=== PATIENT | female | born 1990 | race African-American/Black ===

== ENCOUNTER 2021-03-21 12:08 | Day surgery (SDC) | payer OTHER | END 2021-03-21 13:51 | disposition home or self-care (01) | LOC: CSHSDC 12:08 | PROVIDERS: ATTEND Family Medicine | DX: Z23 Encounter for immunization (principal); U07.1 COVID-19; I10 Essential (primary) hypertension | CPT/HCPCS: 96365; J3490; M0243; Q0244 ==

== ENCOUNTER 2021-05-13 03:02 | Inpatient (IN) | payer OTHER ==
[2021-05-13] MEDS ORDERED: Ondansetron PF 4 MG/2 ML Vial ONE (03:24)
[2021-05-13 03:54] LABS: #Monocytes 0.8 10x3/uL (0.0-1.1); #Neutrophils 12.8 10x3/uL (1.5-8.4); %Basophils 0.2 % (0.0-2.0); %Eosinophils 0.3 % (0.0-6.0); %Lymphocytes 4.9 % (18.0-47.0); %Monocytes 5.3 % (0.0-10.0); Hemoglobin 13.2 g/dL (12.0-15.5); Mean Corpuscular HGB CONC 31.9 g/dL (32.0-36.0); Mean Corpuscular Hemoglobin 28.6 pg (27.0-33.0); Mean Corpuscular Volume 89.8 fl (81.6-98.3); Platelet Count 376 10x3/uL (150-450); RBC Distribution Width 13.1 % (11.5-14.5); Red Blood Cell (RBC) Count 4.61 10x6/uL (3.90-5.03); White Blood Cell (WBC) Count 14.4 10x3/uL (3.5-10.5)
[2021-05-13 03:56] LABS: BHCG - Serum Negative (NEGATIVE); Pregs Control Background? CLEAR/WHITE (CLR/WHITE); Pregs Control Bar Appear? YES (CONTROL BAR)
[2021-05-13 04:08] LABS: ALT (SGPT) 23 U/L (8-55); AST (SGOT) 17 U/L (5-34); Albumin 4.2 g/dL (3.5-5.0); Alkaline Phosphatase 101 U/L (40-110); Anion Gap 21 mmol/L (10-20); BUN (Urea Nitrogen) 15 mg/dL (7.0-18.7); Bilirubin, Total 1.2 mg/dL (0.2-1.2); Calc. Creatinine Clearance 0 mL/min (70-130); Calcium 9.3 mg/dL (7.8-10.44); Carbon Dioxide 19 mmol/L (22-29); Chloride 97 mmol/L (98-107); Globulin 3.5 g/dL (2.4-3.5); Glucose 303 mg/dL (70-105); Lipase 18 U/L (8-78); Magnesium 1.5 mg/dL (1.6-2.6); Potassium 3.9 mmol/L (3.5-5.1); Protein, Total 7.7 g/dL (6.0-8.3); Sodium 133 mmol/L (136-145)
[2021-05-13 07:35] LABS: Actual Bicarbonate (HCO3v) 25 mEq/L (22-28); Base Excess -0.7 mEq/L (-2.0 to +3.0); Calcium, Ionized (venous) 1.07 mmol/L (1.16-1.32); Chloride (VBG) 99 mmol/L (98-106); Potassium (VBG) 3.74 mmol/L (3.70-5.30); Puncture Site Other Site; Sodium 134.1 mmol/L (133-146); pH (venous) 7.36 (7.32-7.43)
[2021-05-13] MEDS ORDERED: Insulin Regular 300 UNITS/3 ML VIAL ONE (08:13)
[2021-05-13 09:14] LABS: SARS-CoV-2 NAA Rapid Test DETECTED (NotDetected)
[2021-05-13] MEDS ORDERED: Magnesium Sulfate 2 GM in Sodium Chloride 0.9% 100 ML IVPB SCH (09:45)
[2021-05-13] MEDS: Sodium Chloride 0.9% 1,000 ML IV SCH ×2 (09:53→20:47)
[2021-05-13 09:58] LABS: Anion Gap 16 mmol/L (10-20); BUN (Urea Nitrogen) 14 mg/dL (7.0-18.7); Calc. Creatinine Clearance 0 mL/min (70-130); Calcium 8.4 mg/dL (7.8-10.44); Carbon Dioxide 24 mmol/L (22-29); Chloride 101 mmol/L (98-107); Glucose 202 mg/dL (70-105); Potassium 3.7 mmol/L (3.5-5.1); Sodium 137 mmol/L (136-145)
[2021-05-13] MEDS ORDERED: Magnesium 2 GM/50 ML(in water) 2 GM in Premix Bag 1 BAG IVPB SCH (10:00)
[2021-05-13] MEDS ORDERED: Dextrose 50% Abboject 50 ML SYRINGE SLOW IVP PRN (10:17)
[2021-05-13] MEDS ORDERED: Dextrose 5% in Water 1,000 ML IV PRN (10:17)
[2021-05-13] MEDS: HumaLOG 300 UNITS/3 ML VIAL SC PRN (11:45)
[2021-05-13 12:55] LABS: Hemoglobin A1c 8.7 % (4.0-6.0)
[2021-05-13 14:08] LABS: Anion Gap 14 mmol/L (10-20); BUN (Urea Nitrogen) 12 mg/dL (7.0-18.7); Calc. Creatinine Clearance 0 mL/min (70-130); Calcium 8.3 mg/dL (7.8-10.44); Carbon Dioxide 24 mmol/L (22-29); Chloride 100 mmol/L (98-107); Glucose 180 mg/dL (70-105); Potassium 3.5 mmol/L (3.5-5.1); Sodium 134 mmol/L (136-145)
[2021-05-13] MEDS: Acetaminophen 325 MG TAB PO PRN ×2 (16:35→20:52)
[2021-05-13] MEDS: Ferrous Sulfate 325 MG TAB PO SCH (20:48)
[2021-05-13] MEDS: Famotidine 20 MG TAB PO SCH (20:48)
[2021-05-13] MEDS: Docusate 100 MG CAP PO SCH (21:22)
[2021-05-14 04:24] LABS: #Eosinphils 0.1 10x3/uL (0.0-0.5); #Monocytes 0.6 10x3/uL (0.0-1.1); #Neutrophils 2.6 10x3/uL (1.5-8.4); %Basophils 0.2 % (0.0-2.0); %Eosinophils 1.2 % (0.0-6.0); %Lymphocytes 20.4 % (18.0-47.0); %Monocytes 14.2 % (0.0-10.0); %Neutrophils 63.8 % (40.0-75.0); Hemoglobin 10.6 g/dL (12.0-15.5); Mean Corpuscular HGB CONC 31.7 g/dL (32.0-36.0); Mean Corpuscular Hemoglobin 28.7 pg (27.0-33.0); Mean Corpuscular Volume 90.5 fl (81.6-98.3); Mean Platelet Volume 9.7 fl (7.4-10.4); Platelet Count 275 10x3/uL (150-450); RBC Distribution Width 13.1 % (11.5-14.5); Red Blood Cell (RBC) Count 3.69 10x6/uL (3.90-5.03)
[2021-05-14 04:35] LABS: Anion Gap 13 mmol/L (10-20); BUN (Urea Nitrogen) 8 mg/dL (7.0-18.7); Calc. Creatinine Clearance 190 mL/min (70-130); Calcium 7.7 mg/dL (7.8-10.44); Carbon Dioxide 22 mmol/L (22-29); Chloride 105 mmol/L (98-107); Glucose 170 mg/dL (70-105); Magnesium 2.1 mg/dL (1.6-2.6); Potassium 3.2 mmol/L (3.5-5.1); Sodium 137 mmol/L (136-145)
[2021-05-14] MEDS ORDERED: Enoxaparin Sodium 30 MG/0.3 ML SYRINGE ONE (07:45)
[2021-05-14] MEDS ORDERED: Potassium Bicarbonate/Cit Ac 20 MEQ TAB PO SCH ×2 (09:00→20:00)
[2021-05-14] MEDS: Enoxaparin Sodium 30 MG/0.3 ML SYRINGE SC SCH (10:05)
[2021-05-14] MEDS: Aspirin 81 mg Enteric Coated Tablet PO SCH (10:06)
[2021-05-14] MEDS: Docusate 100 MG CAP PO SCH ×2 (10:07→21:05)
[2021-05-14] MEDS: Famotidine 20 MG TAB PO SCH ×2 (10:07→20:58)
[2021-05-14] MEDS: Ferrous Sulfate 325 MG TAB PO SCH ×2 (10:07→21:05)
[2021-05-14] MEDS: Losartan 25 MG TAB PO SCH (10:08)
[2021-05-14] MEDS: Acetaminophen 325 MG TAB PO PRN ×2 (10:09→20:58)
[2021-05-14] MEDS: HumaLOG 300 UNITS/3 ML VIAL SC PRN (10:10)
[2021-05-14] MEDS ORDERED: Potassium Chloride 20 MEQ TAB PO SCH ×2 (10:45→21:00)
[2021-05-14] MEDS: Sodium Chloride 0.9% 1,000 ML IV SCH ×3 (22:16→22:26)
[2021-05-15 04:29] LABS: Anion Gap 9 mmol/L (10-20); BUN (Urea Nitrogen) 5 mg/dL (7.0-18.7); Calc. Creatinine Clearance 198 mL/min (70-130); Calcium 7.8 mg/dL (7.8-10.44); Carbon Dioxide 24 mmol/L (22-29); Chloride 112 mmol/L (98-107); Glucose 129 mg/dL (70-105); Potassium 3.7 mmol/L (3.5-5.1); Sodium 141 mmol/L (136-145)
[2021-05-15] MEDS ORDERED: metFORMIN 500 MG TAB PO SCH (08:00)
[2021-05-15] MEDS ORDERED: Glimepiride 2 MG TAB PO SCH (08:00)
[2021-05-15] MEDS: Losartan 25 MG TAB PO SCH (11:05)
[2021-05-15] MEDS: Ferrous Sulfate 325 MG TAB PO SCH (11:05)
[2021-05-15] MEDS: Aspirin 81 mg Enteric Coated Tablet PO SCH (11:05)
[2021-05-15] MEDS: Famotidine 20 MG TAB PO SCH (11:06)
[2021-05-15] MEDS: Enoxaparin Sodium 30 MG/0.3 ML SYRINGE SC SCH (11:06)
[2021-05-15] MEDS: Docusate 100 MG CAP PO SCH (11:07)
[2021-05-15 16:36] VITALS: BP 135/76; TEMP 97
== END 2021-05-15 16:20 | disposition home or self-care (01) | DRG 638 ==
LOC: CSHERS 03:02 → CSHTELE 08:34 → OBSVTOIN 05-14 18:08
PROVIDERS: ADMIT Internal Medicine; ATTEND Hospitalist
DX: E11.65 Type 2 diabetes mellitus with hyperglycemia (principal); E87.4 Mixed disorder of acid-base balance; Z68.42 Body mass index [BMI] 45.0-49.9, adult; A08.4 Viral intestinal infection, unspecified; E86.0 Dehydration; K21.9 Gastro-esophageal reflux disease without esophagitis; I45.81 Long QT syndrome; E83.42 Hypomagnesemia; E66.9 Obesity, unspecified; I10 Essential (primary) hypertension; E78.00 Pure hypercholesterolemia, unspecified; E78.5 Hyperlipidemia, unspecified; Z79.84 Long term (current) use of oral hypoglycemic drugs; Z79.82 Long term (current) use of aspirin; Z79.899 Other long term (current) drug therapy; Z91.013 Allergy to seafood; Z91.018 Allergy to other foods; Z90.89 Acquired absence of other organs; Z91.041 Radiographic dye allergy status; Z83.3 Family history of diabetes mellitus; Z82.49 Family history of ischemic heart disease and other diseases of the circulatory system
CPT/HCPCS: 36415; 36416; 71045; 74177; 80048; 80053; 82010; 82805; 83036; 83630; 83690; 83735; 84484; 84703; 85025; 87045; 87046; 87081; 87324; 87427; 87449; 93005; 93010; 96372; 96374; 96375; G0378; J1650; J1815; J2405; J3475; J7050; U0002